=== PATIENT | female | born 1970 | race Caucasian/White ===

== ENCOUNTER 2017-10-08 12:00 | Inpatient (IN) | payer OTHER ==
[~2017-10-08] VITALS: Ht 152.4 cm; Wt 72.6 kg
== END 2017-10-17 15:47 | disposition home or self-care (01) | DRG 334 ==
LOC: SURH 10-16 06:00 → O/R 10-16 06:00 → SURH 10-16 07:00
PROVIDERS: Surgery
PROC: 0DBP4ZZ Excision of Rectum, Percutaneous Endoscopic Approach (ICD-10-PCS; principal; 2017-10-16 07:00)
DX: D12.9 Benign neoplasm of anus and anal canal (principal)